=== PATIENT | male | born 1955 | race Caucasian/White ===

== ENCOUNTER 2020-04-17 14:59 | Emergency (ER) | payer OTHER ==
--- NOTE | 2020-04-17 15:41 | EDM.PDOC ---
ED HPI GENERAL MEDICAL PROBLEM - General Chief Complaint: Chest Pain Stated Complaint: CHEST PAIN Time Seen by Provider: 04/17/20 15:33 - History of Present Illness INITIAL COMMENTS - FREE TEXT/NARRATIVE: 64-year-old male presents the emergency room with chest pain. This pain is been going on and off for the last month. It is aggravated by using his arm especially overhead motion. Patient has a history of shoulder problems. The pain is located in the left anterior chest. Patient denies any history of coronary artery disease however he is treated for hypertension hyperlipidemia he does take a daily aspirin. Patient smoked very lightly for approximately 5 years he smoked less than a pack a week during this time. He quit approximately 20 years ago the patient seldom has discomfort with rest is usually always with activity especially using his arm. This pain is not associated with inspiration or deep breathing. Left Chest Pain Score (Numeric/FACES): 6 - Related Data Allergies Allergy/AdvReac Type Severity Reaction Status Date / Time No Known Allergies Allergy Verified 04/17/20 15:13 Home Meds: Home Meds Bp Pill. 1 tab PO DAILY 04/17/20 [History] Past Medical History Cardiovascular History: Reports: Hypertension - Past Surgical History GI Surgical History: Reports: Hernia, Abdominal Musculoskeletal Surgical History: Reports: Knee Replacement, Shoulder Surgery Social & Family History - Tobacco Use Tobacco Use Status *Q: Never Tobacco User - Recreational Drug Use Recreational Drug Use: No ED ROS GENERAL - Review of Systems Review Of Systems: See Below Constitutional: Reports: No Symptoms HEENT: Reports: No Symptoms Respiratory: Reports: Other (He has some left anterior chest wall discomfort). Denies: Shortness of Breath, Wheezing, Pleuritic Chest Pain, Cough, Sputum Cardiovascular: Reports: Chest Pain Endocrine: Reports: No Symptoms GI/Abdominal: Reports: No Symptoms Musculoskeletal: Reports: Other (Left shoulder and chest wall pain) Skin: Reports: No Symptoms Neurological: Reports: No Symptoms ED EXAM, GENERAL - Physical Exam Exam: See Below Exam Limited By: No Limitations General Appearance: Alert, No Apparent Distress Head: Atraumatic, Normocephalic Neck: Normal Inspection, Supple, Non-Tender, Full Range of Motion Respiratory/Chest: No Respiratory Distress, Lungs Clear, Normal Breath Sounds, Other (He has tenderness over the pectoralis muscle aggravated by motion and palpation elicits the same discomfort the brings him in) Cardiovascular: Regular Rate, Rhythm, No Edema, No Murmur GI/Abdominal: Normal Bowel Sounds, Soft, Non-Tender Back Exam: Normal Inspection. No: CVA Tenderness (L), CVA Tenderness (R) Extremities: Normal Inspection, No Pedal Edema Neurological: Alert, Oriented, Normal Cognition #1 Interpretation EKG Date: 04/17/20 Rhythm: NSR [place]: Normal P-Wave: Present QRS: Other (Early transition borderline interventricular conduction delay) ST-T: Normal QT: Normal Comparison: NA - No Prior EKG EKG Interpretation Comments: Abnormal Course - Vital Signs Last Recorded V/S: Last Vital Signs Temp 36.1 C 04/17/20 15:11 Pulse 69 04/17/20 15:11 Resp 12 04/17/20 15:11 BP 127/82 04/17/20 15:11 Pulse Ox 95 04/17/20 15:11 - Orders/Labs/Meds Orders: Active Orders 24 hr Category Date Time Status EKG 12 Lead [EKG Documentation Completion] [RC] STAT Care 04/17/20 15:29 A ctive Chest 1V Frontal [CR] Stat Exams 04/17/20 15:41 Taken Labs: Laboratory Tests 04/17/20 04/17/20 04/17/20 Range/Units 15:49 15:49 15:49 WBC 9.63 H (4.23-9.07) K/mm3 RBC 4.51 L (4.63-6.08) M/mm3 Hgb 14.2 (13.7-17.5) gm/dl Hct 41.3 (40.1-51.0) % MCV 91.6 (79.0-92.2) fl MCH 31.5 (25.7-32.2) pg MCHC 34.4 (32.2-35.5) g/dl RDW Std Deviation 45.6 H (35.1-43.9) fL Plt Count 317 (163-337) K/mm3 MPV 8.9 L (9.4-12.3) fl Neut % (Auto) 50.3 (34.0-67.9) % Lymph % (Auto) 36.7 (21.8-53.1) % [place] % (Auto) 8.4 (5.3-12.2) % Eos % (Auto) 3.8 (0.8-7.0) Baso % (Auto) 0.4 (0.1-1.2) % Neut # (Auto) 4.84 (1.78-5.38) K/mm3 Lymph # (Auto) 3.53 (1.32-3.57) K/mm3 [place] # (Auto) 0.81 (0.30-0.82) K/mm3 Eos # (Auto) 0.37 (0.04-0.54) K/mm3 Baso # (Auto) 0.04 (0.01-0.08) K/mm3 PT 11.0 (9.7-11.7) SECONDS INR 1.03 APTT 27 (22-31) SECONDS D-Dimer, Quantitative 0.53 H (0.19-0.50) mg/L Sodium 138 (136-145) mEq/L Potassium 3.3 L (3.5-5.1) mEq/L Chloride 100 (98-107) mEq/L Carbon Dioxide 24 (21-32) mEq/L Anion Gap 17.3 H (5-15) BUN 11 (7-18) mg/dL Creatinine 1.1 (0.7-1.3) mg/dL Est Cr Clr Drug Dosing 72.26 mL/min Estimated GFR (MDRD) > 60 (>60) mL/min BUN/Creatinine Ratio 10.0 L (14-18) Glucose 99 (80-115) mg/dL Calcium 8.5 (8.5-10.1) mg/dL Total Bilirubin 0.3 (0.2-1.0) mg/dL AST 23 (15-37) U/L ALT 37 (16-63) U/L Alkaline Phosphatase 56 (46-116) U/L Troponin I < 0.017 (0.00-0.056) ng/mL Total Protein 7.4 (6.4-8.2) g/dl Albumin 3.9 (3.4-5.0) g/dl Globulin 3.5 gm/dL Albumin/Globulin Ratio 1.1 (1-2) Meds: Medications Discontinued Medications Generic Name Dose Route Start Last Admin Trade Name Freq PRN Reason Stop Dose Admin Aspirin 324 mg 04/17/20 17:44 04/17/20 17:52 Aspirin PO 04/17/20 17:45 324 mg ONETIME ONE Administration Potassium Chloride 40 meq 04/17/20 17:45 04/17/20 17:52 Klor-Con M20 PO 04/17/20 17:46 40 meq ONETIME ONE Administration - Re-Assessments/Exams Free Text/Narrative Re-Assessment/Exam: 04/17/20 17:56 Troponin is negative. D-dimer is minimally elevated however adjusted for his age is normal. Patient is pain-free. I think the patient needs to get a stress test done he wants to follow-up at the [facility] for this, as this is where his insurance is. I recommended to the patient that he continue his daily aspirin I would recommend he also stop the ibuprofen as it can increase his risk for heart attack and stroke as well as dry with his blood pressure. He should use Tylenol for discomfort. Departure - Departure Time of Disposition: 17:57 Disposition: Home, Self-Care 01 Clinical Impression: Chest pain, Strain of left pectoralis muscle Referrals: PCP,None [Ordering Only Provider] - Forms: ED Department Discharge Additional Instructions: Return to the emergency room with any questions problems or worsening symptoms. Follow-up at the [facility] early this week and discuss getting a stress Cardiolite or stress echo done. Continue your daily aspirin. However stop the ibuprofen. Use Tylenol as needed for aches and pains. Follow bottle labeling instructions. Sepsis Event Note (ED) - Evaluation Sepsis Screening Result: No Definite Risk - Focused Exam Vital Signs: Vital Signs Temp Pulse Resp BP Pulse Ox 04/17/20 15:11 36.1 C 69 12 127/82 95 - My Orders Last 24 Hours: My Active Orders 04/17/20 15:29 EKG 12 Lead [EKG Documentation Completion] [RC] STAT 04/17/20 15:41 Chest 1V Frontal [CR] Stat - Assessment/Plan Last 24 Hours: My Active Orders 04/17/20 15:29 EKG 12 Lead [EKG Documentation Completion] [RC] STAT 04/17/20 15:41 Chest 1V Frontal [CR] Stat
[2020-04-17] MEDS ORDERED: Aspirin 81 MG Tab.Chew PO ONE (17:44)
[2020-04-17] MEDS ORDERED: Potassium Chloride 20 MEQ Tab.ER PO ONE (17:45)
== END 2020-04-17 18:05 | disposition home or self-care (01) ==
LOC: JD.ED 14:59
DX: S29.011A Strain of muscle and tendon of front wall of thorax, initial encounter (principal); I10 Essential (primary) hypertension; F17.210 Nicotine dependence, cigarettes, uncomplicated; Z79.82 Long term (current) use of aspirin; X58.XXXA Exposure to other specified factors, initial encounter
CPT/HCPCS: 36415; 71045; 80053; 84484; 85025; 85379; 85610; 85730; 93005; 99285; A9270; 93010; 99283